=== PATIENT | female | born 1935 | race Caucasian/White ===

== ENCOUNTER → 2016-08-21 | Outpatient (CLI) | payer MEDICARE, BC ==
--- NOTE | 2016-08-21 16:22 | CR ---
EXAMINATION: Bilateral knees HISTORY: Osteoarthritis COMPARISON: None TECHNIQUE: 2 views bilaterally FINDINGS: There is mild joint space narrowing within the medial compartments bilaterally. No fractur e or acute osseous abnormality. Bone mineralization appears normal. No soft tissue swelling or joint effusion. IMPRESSION: Mild joint space narrowing within the medial compartments bilaterally.
== END ==
LOC: MW.CHIM 13:28
PROVIDERS: ATTEND Internal Medicine
DX: N39.0 Urinary tract infection, site not specified (principal); M19.90 Unspecified osteoarthritis, unspecified site; I10 Essential (primary) hypertension; G47.33 Obstructive sleep apnea (adult) (pediatric); Z99.89 Dependence on other enabling machines and devices
CPT/HCPCS: 73560-26-LT; 73560-26-RT; 73560-LT; 73560-RT; 81001; 87086; 87088; 87186; 99214

== ENCOUNTER → 2016-09-26 | Outpatient (CLI) | payer MEDICARE, BC | LOC: MW.CHIM 14:31 | PROVIDERS: ATTEND Internal Medicine | DX: N39.0 Urinary tract infection, site not specified (principal); L72.3 Sebaceous cyst; I10 Essential (primary) hypertension; J44.9 Chronic obstructive pulmonary disease, unspecified | CPT/HCPCS: 81001; 99214 ==

== ENCOUNTER 2022-08-28 10:34 | Observation (INO) | payer MEDICARE, BC ==
[2022-08-28] MEDS ORDERED: Sodium Chloride 0.9% 10 ML Syringe FLUSH PRN ×2 (10:45→15:00)
[2022-08-28] MEDS ORDERED: Sodium Chloride 0.9% 2.5 ML Syringe FLUSH PRN ×2 (10:45→15:00)
[2022-08-28] MEDS ORDERED: Furosemide 40 MG/4 ML VIAL IVPUSH STA (11:23)
[2022-08-28 12:06] LABS: CARBON DIOXIDE,CO2 37.5 mmol/L (21.0-32.0); POTASSIUM,K 4.2 mmol/L (3.5-5.1)
[2022-08-28] MEDS ORDERED: Ondansetron 4 MG/2 ML SDV IVPUSH PRN (15:00)
[2022-08-28] MEDS ORDERED: Docusate Sodium 100 MG Cap PO PRN (15:00)
[2022-08-28] MEDS ORDERED: Albuterol/Ipratropium 3.0-0.5 MG/3 ML Neb Soln NEB PRN (15:00)
[2022-08-28] MEDS ORDERED: Acetaminophen 325 MG Tab PO PRN (15:00)
[2022-08-28] MEDS ORDERED: Polyethylene Glycol 3350 Powder 17 GM Packet PO PRN (15:00)
[2022-08-28] MEDS ORDERED: ALPRAZolam 0.25 MG Tab PO PRN (19:19)
[2022-08-28] MEDS ORDERED: Rivaroxaban 10 MG Tab PO SCH (19:30)
[2022-08-28] MEDS: cloNIDine 0.1 MG Tab PO SCH ×2 (20:06→20:14)
[2022-08-28] MEDS ORDERED: UMECLIDINIUM INH SCH (21:00)
[2022-08-28] MEDS ORDERED: Phenytoin 100 MG Cap.ER PO SCH (21:00)
[2022-08-28] MEDS ORDERED: VILANTEROL INH SCH (21:00)
[2022-08-28] MEDS ORDERED: Montelukast 10 MG Tab PO SCH (21:00)
[2022-08-28] MEDS ORDERED: BUDESONIDE 180 MCG INH SCH (21:00)
[2022-08-28] MEDS ORDERED: traZODone 50 MG Tab ONE (22:01)
[2022-08-28] MEDS ORDERED: traZODone 50 MG Tab PO SCH (22:15)
[2022-08-29 06:02] LABS: CARBON DIOXIDE,CO2 39.8 mmol/L (21.0-32.0); POTASSIUM,K 3.4 mmol/L (3.5-5.1)
[2022-08-29] MEDS ORDERED: Furosemide 40 MG/4 ML VIAL IVPUSH SCH (08:00)
[2022-08-29] MEDS ORDERED: Metolazone 5 MG Tab PO ONE (08:07)
[2022-08-29] MEDS ORDERED: Furosemide 40 MG/4 ML VIAL IVPUSH ONE (08:44)
[2022-08-29] MEDS ORDERED: Venlafaxine 75 MG Cap.ER PO SCH (09:00)
[2022-08-29] MEDS ORDERED: Spironolactone 25 MG Tab PO SCH (09:00)
[2022-08-29] MEDS ORDERED: amLODIPine 5 MG Tab PO SCH (09:00)
[2022-08-29] MEDS ORDERED: Phenytoin 100 MG Cap.ER PO SCH ×2 (09:00→21:00)
[2022-08-29] MEDS ORDERED: buPROPion 150 MG Tab.ER PO SCH ×2 (09:00)
[2022-08-29] MEDS ORDERED: Potassium Chloride 20 MEQ Tab.ER PO ONE (09:09)
[2022-08-29 11:41] VITALS: BP 130/73; PULSE 66
[2022-08-29] MEDS ORDERED: BIOTENE DRY MOUTH RINSE PO SCH (12:00)
[2022-08-29] MEDS ORDERED: cloNIDine 0.1 MG Tab PO SCH (21:00)
== END 2022-08-29 14:30 | disposition home health service (06) ==
LOC: MW.ED 10:34 → MW.MS 14:05
PROVIDERS: ADMIT Hospitalist; ATTEND Hospitalist
DX: I11.0 Hypertensive heart disease with heart failure (principal); I50.31 Acute diastolic (congestive) heart failure; J96.11 Chronic respiratory failure with hypoxia; J44.9 Chronic obstructive pulmonary disease, unspecified; I25.10 Atherosclerotic heart disease of native coronary artery without angina pectoris; I48.0 Paroxysmal atrial fibrillation; I27.20 Pulmonary hypertension, unspecified; G47.33 Obstructive sleep apnea (adult) (pediatric); E03.9 Hypothyroidism, unspecified; F41.9 Anxiety disorder, unspecified; F32.A Depression, unspecified; I35.0 Nonrheumatic aortic (valve) stenosis; Z79.01 Long term (current) use of anticoagulants; Z95.0 Presence of cardiac pacemaker; Z87.898 Personal history of other specified conditions; Z79.890 Hormone replacement therapy; Z79.899 Other long term (current) drug therapy; Z88.2 Allergy status to sulfonamides
CPT/HCPCS: 36415; 71045; 80048; 80053; 81003; 83735; 83880; 84484; 85025; 93005; 93306; 96374; 96376; 97161; 99285; A9270; G0378; J1940; J3490; 93010; 99284

== ENCOUNTER 2023-01-19 10:52 | Emergency (ER) | payer MEDICARE, BC ==
[2023-01-19 11:05] VITALS: BP 138/68; PULSE 70
== END 2023-01-19 12:28 | disposition home or self-care (01) ==
LOC: MW.ED 10:52
DX: J01.90 Acute sinusitis, unspecified (principal); I10 Essential (primary) hypertension; Z79.899 Other long term (current) drug therapy; Z88.2 Allergy status to sulfonamides; Z88.5 Allergy status to narcotic agent
CPT/HCPCS: 71045; 99285; U0002; 99282